=== PATIENT | male | born 1960 | race African-American/Black ===

== ENCOUNTER 2017-04-14 01:15 | Emergency (ER) | payer OTHER ==
[~2017-04-14] VITALS: Ht 180.3 cm; Wt 86.0 kg
[2017-04-14] MEDS ORDERED: SODIUM CHLORIDE 0.9% 1,000 ML IV ONE (01:42)
[2017-04-14 02:19] LABS: BASOPHILS % 1.4 % (0.0-2.0); EOSINOPHILS % 4.2 % (0.0-5.0); HEMATOCRIT. 43.9 % (42.0-52.0); LYMPHOCYTES % 40.4 % (20.0-50.0); MEAN CORPUSCULAR HEMOGLOBIN 30.4 pg (28.0-32.0); MEAN CORPUSCULAR VOLUME 88.8 fL (80.0-94.0); MEAN PLATELET VOLUME 7.9 fl (7.4-10.4); MONOCYTES % 9.2 % (2.0-8.0); NEUTROPHILS % 44.8 % (40.0-76.0); PLATELET 365 x1000/uL (130-400); RED BLOOD CELL COUNT 4.94 mill/uL (4.7-6.1); RED CELL DISTRIBUTION WIDTH 14.2 % (11.6-14.6)
[2017-04-14 02:34] LABS: AMMONIA 27 uMol/L (<32)
[2017-04-14 02:35] LABS: CARBON DIOXIDE 32 mEq/L (21-32); CHLORIDE 107 mEq/L (98-107); CREATINE KINASE 198 IU/L (39-308); ETHANOL BLOOD < 10 mg/dL; TROPONIN I < 0.02 ng/mL (0.00-0.04)
[2017-04-14 02:53] LABS: CLARITY URINE CLEAR (CLEAR); COLOR URINE YELLOW (YELLOW); GLUCOSE URINE NEGATIVE (NEGATIVE); KETONES URINE NEGATIVE (NEGATIVE); LEUKOCYTE ESTERASE URINE NEGATIVE (NEGATIVE); NITRITE URINE NEGATIVE (NEGATIVE); OCCULT BLOOD URINE NEGATIVE (NEGATIVE); PH URINE 5.5 (4.5-8.0); PROTEIN URINE NEGATIVE (NEGATIVE); SPECIFIC GRAVITY URINE 1.025 (1.005-1.030)
[2017-04-14 03:22] LABS: *AMPHETAMINES SCREEN URINE NEGATIVE (NEGATIVE); *BARBITURATES SCREEN URINE NEGATIVE (NEGATIVE); *BENZODIAZEPINES SCREEN URINE NEGATIVE (NEGATIVE); *COCAINE SCREEN URINE PRESUMTIVE POSITIVE (NEGATIVE); CANNABINOID URINE SCREEN PRESUMTIVE POSITIVE (NEGATIVE); METHADONE URINE SCREEN NEGATIVE (NEGATIVE); OPIATES URINE SCREEN NEGATIVE (NEGATIVE); PHENCYCLIDINE URINE SCREEN PRESUMTIVE POSITIVE (NEGATIVE)
[2017-04-14 05:20] VITALS: BP 135/82
== END 2017-04-14 05:20 | disposition left against medical advice (07) ==
LOC: EDBD 01:15 → ER 01:15 → CANRESERV 20:54 → ENRESERV 20:54 → CANBEDREQ 04-15 02:19
DX: R41.0 Disorientation, unspecified (principal); F16.10 Hallucinogen abuse, uncomplicated; F14.10 Cocaine abuse, uncomplicated; F12.10 Cannabis abuse, uncomplicated; E03.9 Hypothyroidism, unspecified
CPT/HCPCS: 36415; 70450; 71010; 80053; 80305; 80307; 80329; 81003; 82140; 82550; 83605; 84443; 84484; 85025; 85610; 93005; 96360; 99285; G0482; J7030; Z7610

== ENCOUNTER 2020-05-17 16:44 | Emergency (ER) | payer OTHER ==
[~2020-05-17] VITALS: Ht 170.2 cm; Wt 75.0 kg
[2020-05-17 19:09] LABS: BASOPHILS % 1.2 % (0.0-2.0); HEMATOCRIT. 38.7 % (42.0-52.0); HEMOGLOBIN. 12.8 g/dL (14.0-18.0); LYMPHOCYTES % 36.8 % (20.0-50.0); MEAN CORPUSCULAR HEMOGLOBIN 25.7 pg (28.0-32.0); MEAN CORPUSCULAR VOLUME 78.2 fL (80.0-94.0); MEAN PLATELET VOLUME 8.2 fl (7.4-10.4); MONOCYTES % 11.6 % (2.0-8.0); NEUTROPHILS % 47.4 % (40.0-76.0); PLATELET 392 x1000/uL (130-400); RED BLOOD CELL COUNT 4.95 mill/uL (4.7-6.1); RED CELL DISTRIBUTION WIDTH 18.1 % (11.6-14.6)
[2020-05-17 19:14] LABS: CHLORIDE 107 mEq/L (98-107)
[2020-05-17 19:17] LABS: ETHANOL BLOOD < 10 mg/dL
[2020-05-18 02:00] VITALS: BP 162/75
== END 2020-05-18 02:40 | disposition home or self-care (01) ==
LOC: ER 16:52
DX: F10.129 Alcohol abuse with intoxication, unspecified (principal); F17.290 Nicotine dependence, other tobacco product, uncomplicated; F14.10 Cocaine abuse, uncomplicated; F16.10 Hallucinogen abuse, uncomplicated; I10 Essential (primary) hypertension; Y90.0 Blood alcohol level of less than 20 mg/100 ml
CPT/HCPCS: 36415; 80053; 80320; 82962; 85025; 99285; 99406; G0480

== ENCOUNTER 2021-05-30 06:34 | Emergency (ER) | payer MEDICAID, OTHER ==
[~2021-05-30] VITALS: Ht 172.7 cm; Wt 72.3 kg
[2021-05-30 07:40] VITALS: BP 122/78
== END 2021-05-30 08:55 | disposition home or self-care (01) ==
LOC: ER 06:34
DX: K40.91 Unilateral inguinal hernia, without obstruction or gangrene, recurrent (principal)
CPT/HCPCS: 99281

== ENCOUNTER 2021-08-21 14:15 | Emergency (ER) | payer MEDICAID ==
[~2021-08-21] VITALS: Ht 172.7 cm; Wt 76.0 kg
[2021-08-21] MEDS ORDERED: IBUP-2029 MT (14:38)
[2021-08-21] MEDS ORDERED: TOPUD PO (14:38)
[2021-08-21 15:07] VITALS: BP 135/81
== END 2021-08-21 15:09 | disposition home or self-care (01) ==
LOC: ER 14:15
DX: K40.90 Unilateral inguinal hernia, without obstruction or gangrene, not specified as recurrent (principal); R05.9 Cough, unspecified
CPT/HCPCS: 99281; 99282

== ENCOUNTER 2022-01-15 13:50 | Emergency (ER) | payer MEDICAID ==
[~2022-01-15] VITALS: Ht 175.3 cm; Wt 84.0 kg
[~2022-01-15 13:50] MED LIST: IBUP-2029 MT; TOPUD PO
[2022-01-15 14:07] VITALS: BP 146/92
[2022-01-15] MEDS ORDERED: ONDANSETRON HCL 4MG/2ML INJ IV STA (14:07)
[2022-01-15] MEDS ORDERED: MORPHINE SULFATE 4 MG/ML CPJ (NOT FOR IM USE) IV STA (14:07)
[2022-01-15] MEDS ORDERED: FAMOTIDINE 20MG/2ML VIAL IV STA (14:07)
[2022-01-15 15:00] LABS: EOSINOPHILS % 0.1 % (0.0-5.0); HEMATOCRIT. 46.7 % (42.0-52.0); LYMPHOCYTES % 9.5 % (20.0-50.0); MEAN CORPUSCULAR HEMOGLOBIN 25.4 pg (28.0-32.0); MEAN CORPUSCULAR VOLUME 79.1 fL (80.0-94.0); MEAN PLATELET VOLUME 7.5 fl (7.4-10.4); MONOCYTES % 2.9 % (2.0-8.0); NEUTROPHILS % 86.5 % (40.0-76.0); PLATELET 442 x1000/uL (130-400); RED BLOOD CELL COUNT 5.91 mill/uL (4.7-6.1); RED CELL DISTRIBUTION WIDTH 18.3 % (11.6-14.6)
[2022-01-15 15:01] LABS: CHLORIDE 105 mEq/L (98-107)
[2022-01-15 15:09] LABS: ETHANOL BLOOD < 10 mg/dL
[2022-01-15] MEDS ORDERED: FAMOTIDINE 20MG/2ML VIAL IV NR (17:00)
[2022-01-15] MEDS ORDERED: MORPHINE SULFATE 4 MG/ML CPJ (NOT FOR IM USE) IV NR (17:00)
[2022-01-15] MEDS ORDERED: ONDANSETRON HCL 4MG/2ML INJ IV NR (17:00)
[2022-01-15] MEDS ORDERED: SIME125C MT (17:56)
[2022-01-15] MEDS ORDERED: FAMO40TA70 MT (17:56)
[2022-01-15] MEDS ORDERED: TOPUD PO (17:56)
== END 2022-01-15 19:13 | disposition home or self-care (01) ==
LOC: ER 13:50
DX: K29.70 Gastritis, unspecified, without bleeding (principal); A05.9 Bacterial foodborne intoxication, unspecified
CPT/HCPCS: 36415; 80053; 80320; 83690; 85025; 93005; 96374; 96375; 99284; J2270; J2405; G0480

== ENCOUNTER 2022-04-08 10:30 | Emergency (ER) | payer MEDICAID ==
[~2022-04-08] VITALS: Ht 172.7 cm; Wt 73.0 kg
[~2022-04-08 10:30] MED LIST changes: +FAMO40TA70 MT; +SIME125C MT
[2022-04-08 10:46] VITALS: BP 138/72
[2022-04-08] MEDS ORDERED: ACETAMINOPHEN 325MG TABLET PO STA (11:27)
[2022-04-08 12:46] LABS: CLARITY URINE CLEAR (CLEAR); COLOR URINE YELLOW (YELLOW); KETONES URINE TRACE (NEGATIVE); LEUKOCYTE ESTERASE URINE 1+ (NEGATIVE); NITRITE URINE NEGATIVE (NEGATIVE); OCCULT BLOOD URINE NEGATIVE (NEGATIVE); PH URINE 5.5 (4.5-8.0); PROTEIN URINE TRACE (NEGATIVE); SPECIFIC GRAVITY URINE 1.027 (1.005-1.030)
[2022-04-08] MEDS ORDERED: ACET-2708 PO (13:20)
== END 2022-04-08 13:36 | disposition home or self-care (01) ==
LOC: ER 10:39
DX: K40.90 Unilateral inguinal hernia, without obstruction or gangrene, not specified as recurrent (principal)
CPT/HCPCS: 76870; 81003; 93976; 99284